=== PATIENT | female | born 1995 | race Caucasian/White ===

== ENCOUNTER 2024-09-23 08:56 | Day surgery (SDC) | payer OTHER, SELFPAY ==
[2024-09-23 08:55] VITALS: BP 135/63; PULSE 73; RESP 18; TEMP 35.8; O2SAT 96
--- NOTE | 2024-09-23 09:05 | W.ED.GENAD ---
Discharge Plan Disposition Patient Disposition: Admit to [facility] Condition: Stable Condition: Stable Discharge Details Chief Complaint: Orthopedic Clinical Impression: Distal radius fracture, left Attending Provider: Garcia Carolina Primary Care Provider: Unknown,Unknown ED Provider: Jason Sommers Discharge Orders Discharge Orders: Discharge Order (Routine); Ordered 09/23/24 Ordered By: Garcia Carolina [facility] General Date/Time Provider Initiated Documentation: 09/23/24 09:02. Limitations to Documentation: no limitations. Information obtained by: patient. HPI Narrative: 29-year-old female with out medical history presents for evaluation of acute onset left arm pain. The patient reports that she was walking on the sidewalk when she slipped and fell and put her arm back to brace her fall. She reports having immediate onset of pain in the left wrist and this was associated with a visual abnormality noted in the wrist. She reports severe pain. No open wounds or bleeding. Denies any other injuries during the fall. Reports that she does not have any numbness or tingling. She is right-hand dominant. N.p.o. 730 with donuts and coffee. Related Data Home Medications ?Medication ?Instructions ?Recorded ?Confirmed citalopram 10 mg tablet (Celexa) 10 mg PO DAILY 09/23/24 09/23/24 naproxen 250 mg tablet 250 - 500 mg (1 - 2 x 250 mg) PO 09/23/24 BID PRN #40 tabs oxycodone 5 mg tablet 5 - 10 mg (1 - 2 x 5 mg) PO Q4H 09/23/24 PRN moderate to severe pain #18 tabs Previous Rx's ?Medication ?Instructions ?Recorded naproxen 250 mg tablet 250 - 500 mg (1 - 2 x 250 mg) PO 09/23/24 BID PRN #40 tabs oxycodone 5 mg tablet 5 - 10 mg (1 - 2 x 5 mg) PO Q4H 09/23/24 PRN moderate to severe pain #18 tabs Allergies Allergy/AdvReac Type Severity Reaction Status Date / Time No Known Allergies Allergy Unverified 09/23/24 09:03 General Stated Complaint: Orthopedic SHRUTHI: 3 Exam Narrative Exam Narrative: Review of Systems: All systems reviewed & are unremarkable except as noted in HPI and below Well-developed, appears uncomfortable NCAT RRR Unlabored respiratory effort \Obvious deformity of left forearm, 2+ radial pulse, good cap refill, sensation intact distally no open wound, elbow nontender without effusion. Course Vital Signs Vital signs: Vital Signs Temperature 35.8 C L 09/23/24 08:55 Pulse 73 09/23/24 08:55 Respiratory Rate 18 09/23/24 08:55 Blood Pressure 135/63 09/23/24 08:55 Pulse Oximetry 96 09/23/24 08:55 Temperature 35.8 C L 09/23/24 08:55 Pulse 73 09/23/24 08:55 Respiratory Rate 18 09/23/24 08:55 Blood Pressure 135/63 09/23/24 08:55 Blood Pressure Position Sitting 09/23/24 08:55 Pulse Oximetry 96 09/23/24 08:55 Oxygen Delivery Method Room Air 09/23/24 08:55 Oxygen Flow Rate 0 09/23/24 08:55 Pain Level 8 09/23/24 08:55 Medical Decision Making Emergent evaluation of acute left arm pain. Patient has obvious deformity noted. Initial differential includes fracture, contusion, ligamentous injury. Doubt neurovascular compromise given the examination. Will provide pain control IV and to get emergent x-ray imaging to further evaluate treatment plan. X-ray imaging is concerning for severe distal radius fracture. Orthopedic surgery has been consulted and have reviewed the imaging. They will take the patient to the operating room for close reduction and further management. Quality:SDOH Health Related Social Needs: Health related social needs housing instability, housed, with risk of homelessness (Z59.811) PFSH All Active Problems (Updated 09/23/24 @ 14:29 by Jason Sommers MD) Distal radius fracture, left (Acute ~09/23/24) Social History Smoking/Tobacco Use Status: Never Smoking risk assessment performed?: Yes Alcohol Intake: never Substance use type: does not use Housing: house Do you feel safe at home: Yes Do you feel safe in your relationship?: Yes Additional Social history: signifigant other at bedside
[2024-09-23] MEDS: fentaNYL 100 MCG/2 ML VIAL 50 MCG IVP ×3 (09:26→11:45)
--- NOTE | 2024-09-23 11:00 | DI.RAD_ITS ---
Exam(s) XR ELBOW LT COMPLETE XR FOREARM LT XR WRIST LT COMPLETE EXAM: XR FOREARM LT CLINICAL HISTORY: DEFORM. TECHNIQUE: 2D digital imaging was performed. Two views of the forearm. Three views of the wrist an d elbow COMPARISON: CR XR ELBOW LT COMPLETE from 09/23/2024 CR XR WRIST LT COMPLETE from 09/23/2024 FINDINGS: BONES: There is a comminuted fracture of the distal radius with posterior displacement and angulation . An ulnar styloid fractures also present. The carpal bones appear intact. No bony destructive les ion is seen. The elbow appears intact. SOFT TISSUE: Normal. IMPRESSION: Comminuted distal radial fracture. Ulnar styloid fracture. DATA REPOSITORY: RADIATION DOSE DELIVERED:
--- NOTE | 2024-09-23 11:33 | W.ANESPRE ---
General Info Date of Service Date Performed: 09/23/24 Height: 5 ft 7 in Weight: 99.79 kg Body Mass Index (BMI): 34.4 Surgical Procedure: Operation Date: 09/23/24 12:10 Proposed Procedure Side Surgeon p Closed Reduction of Wrist Left Garcia Carolina MD Meds Allergies and Home Medications Allergies Allergy/AdvReac Type Severity Reaction Status Date / Time No Known Allergies Allergy Unverified 09/23/24 09:03 Home Medication ?Medication ?Instructions ?Recorded citalopram 10 mg tablet (Celexa) 10 mg PO DAILY 09/23/24 Current Visit Medications: Current Medications Generic Name Dose Route Start Last Admin Trade Name Freq PRN Reason Stop Dose Admin IV Miscellaneous Supplies 1 each 09/23/24 09:15 Iv Access-Emergency Dept IV DIRECTED MADELINE Sodium Chloride 0 ml 09/23/24 09:02 Normal Saline Flush 10 Ml Syr IVP PRN PRN Sodium Chloride 0 ml 09/23/24 20:00 Normal Saline Flush 10 Ml Syr IVP BID MADELINE Sodium Chloride 0 ml 09/23/24 09:02 Normal Saline 10 Ml Vial IJ DIRECTED PRN PFSH Tobacco Smoking/Tobacco Use Status: Never Alcohol Alcohol Intake: never Substance Use Substance use type: does not use Vital Signs and Lab Results Vital Signs Most Recent Vital Signs in EMR: Most Recent Vital Signs Temp Pulse Resp BP Pulse Ox 35.8 C L 73 18 135/63 96 09/23/24 08:55 09/23/24 08:55 09/23/24 08:55 09/23/24 08:55 09/23/24 08:55 Point of Care Results Point of Care Results: POC- Test(urine) Negative 09/23/24 10:21 Lab Results Blood Type / Crossmatch: No Data to Display Complete Blood Count: No Data to Display Complete Metabolic Panel: No Data to Display Liver Function Panel: No Data to Display Coagulation Panel: No Data to Display Cardiac Panel: No Data to Display Arterial Blood Gas: No Data to Display Venous Blood Gas: No Data to Display Pancreas Panel: No Data to Display Thyroid Panel: No Data to Display Infectious Disease: No Data to Display Blood Cultures: No Data to Display Toxicology Panel: No Data to Display Panel: No Data to Display Anesthesia Assessment and Plan Anesthesia History Personal History: No History of Anesthesia Complications Family History: No Family History of Anesthesia Complications Exercise Tolerance Exercise Tolerance: Metabolic Equivalents>4 Cardiac & Pulmonary Exam Cardiac Exam: Normal S1/S2 Heart Sounds Pulmonary Exam: Clear Bilateral Breath Sounds Implantable Cardiac Device Does patient have a Pacemaker or an ICD?: No Airway Exam Known Difficult Airway: No Mallampati Class: 1 Mouth Opening: Normal (> 3cm) Thyromental Distance: Greater than 3 cm Neck Range of Motion: Full ROM Neck Circumference: Normal Teeth Condition: Normal Dentition ASA Classification ASA Score: ASA 2 Emergency Case?: No NPO Status NPO Status: NPO Small Non-Fatty Meal >6 hours (small bites of doughnut. ) Status Status: Negative HCG Anesthesia Plan Resuscitation Status: Full Code Anesthesia Technique: MAC Anesthesia Airway Planned: Natural Airway Pain Management: Surgeon and patient request nerve block Monitors Used: Standard Monitors Preoperative Comments:: 29 yo female for closed reduction. Sig PMHx: Denies major. Diet related GERD. A few small pieces of doughnut holes at ~7 this AM. Discussed risks benefits of GA vs regional anesthesia. Will try to do regional as primary with moderate sedation/GA as back up.
[2024-09-23 11:35] VITALS: BMI 34.4
--- NOTE | 2024-09-23 11:42 | W.ORTHOCONSU ---
Date of service: 09/23/24 Time of Service: 11:43 Assessment and Plan Assessment and plan (1) Distal radius fracture, left: Status: Acute Assessment and plan: 29-year-old [id number] female presented to the ER status post mechanical slip and fall around 815 this morning injuring her left wrist. Describes severe pain and obvious deformity at rest, movement makes it worse. Initially felt like her hand was asleep but this sensation has resolved. Has been given 2 doses of fentanyl. Denies prior wrist issues. Denies any current numbness or weakness. Denies subsequent injury. She states that she is otherwise healthy, past medical history of anxiety and depression. Is prescribed Celexa but states that she has not taken it in about 1 month. X-rays obtained, reveals a distal radius commuted fracture. ER requested orthopedic consultation. Last ate coffee and donuts at about 730 this morning. Left wrist exam: Skin is intact without ecchymosis. Diffuse swelling, tenderness, and obvious deformity. Given known fracture, wrist movement not tested. Patient able to demonstrate limited painful flexion and extension of all digits. Able to demonstrate limited painful elbow motion. No distinct discomfort to direct palpation about the elbow. Sensation intact throughout. Normal radial pulse and capillary refill. Brisk cap refill, warm and perfused. Left wrist x-ray reviewed, comminuted distal radius fracture with notable dorsal displacement and angulation. Ulnar styloid fracture also present. No other hand, forearm, or elbow fracture seen. Discussed at length with patient and her partner. Reviewed the relative urgency for reduction. Possibly extra-articular and may only require close reduction. Reviewed possible incomplete reduction and redisplacement given the amount of initial displacement requiring future ORIF surgery. No major nerve tendon or artery problems at this time. Decision to proceed with left wrist closed reduction under regional and/or general anesthesia The risks, benefits, and alternatives were thoroughly discussed. Patient was counseled regarding pain management, expected postoperative course, and recovery timeline. All questions were answered. Informed consent was obtained. Agree and understand treatment plan. Follow-up to be determined based on reduction/stability Breathing comfortably on room air. No cough or wheeze. Contralateral right wrist 2+ radial pulse regular rate and rhythm. PFSH All Active Problems (Updated 09/23/24 @ 11:45 by RAQUEL Fraga) Distal radius fracture, left (Acute ~09/23/24) Social History Smoking/Tobacco Use Status: Never Smoking risk assessment performed?: Yes Alcohol Intake: never Substance use type: does not use Housing: house Do you feel safe at home: Yes Do you feel safe in your relationship?: Yes Additional Social history: signifigant other at bedside Results Last Vital Signs Temp 35.8 C L 09/23/24 08:55 Pulse 73 09/23/24 08:55 Resp 18 09/23/24 08:55 BP 135/63 09/23/24 08:55 Pulse Ox 96 09/23/24 08:55
[2024-09-23] MEDS: Ketorolac 15 MG/ML VIAL 10 MG IVP (11:44)
[2024-09-23] MEDS: ACETAMINOPHEN 1,000 MG/100 ML BAG 400 MG IVPB (11:44)
[2024-09-23 12:11] VITALS: BP 125/70; PULSE 71; RESP 19; O2SAT 99
--- NOTE | 2024-09-23 12:25 | ROE_ITS ---
Operative Note Operative Note PRE-OP DIAGNOSIS: Displaced left distal radius fracture POST-OP DIAGNOSIS: same PROCEDURE: Left wrist closed reduction with manipulation under anesthesia, CPT #21890 SURGEON: Garcia Carolina ANESTHESIA TYPE: General LMA/ETT and Primary Nerve Block Refer to Anesthesia Record COMPLICATIONS: None Patient was transported to: PACU Patient's condition: stable Indications: Please see complete medical record for details. Procedure Description: In the operating room, general anesthesia was induced. The patient was positioned supine on the stretcher. Preoperative antibiotics were omitted. The correct patient, procedure, and side of the procedure were all verified prior to incision. The obvious distal radius/wrist deformity was examined. Skin was intact. Compartments were soft. Using the single boarding kennel or cattery operator maneuver, traction was applied followed by gentle exaggeration of the deformity and then a careful volar translation, flexion, and ulnar deviation force was used to correct the deformity. The extremity was visibly and palpably aligned appropriately. C arm fluoroscopy was used to confirm excellent reduction. An appropriately molded and padded plaster sugar-tong splint was then applied with a careful 3 point mold used to maintain the reduction. Final imaging confirmed maintenance of the reduction in the hardened splint. The patient awoke from anesthesia without complication and was transferred to the recovery area in a stable condition. She readily demonstrated nearly full motion all fingers and thumb. Brisk capillary refill. Date of Procedure: 09/23/24
--- NOTE | 2024-09-23 12:25 | W.PM.DSUDISC ---
Date of service: 09/23/24 Discharge Plan Disposition Patient Disposition: Home Condition: Stable Discharge Details Reason For Visit: Broken Wrist Attending Provider: Garcia Carolina Primary Care Provider: Unknown,Unknown Home Meds and New Rx's Prescriptions: New naproxen 250 mg tablet 250 - 500 mg PO BID PRNQty: 40 0RF Rx Instructions: take with a meal oxycodone 5 mg tablet 5 - 10 mg PO Q4H MDD 30 mg PRN (Reason: moderate to severe pain) Qty: 18 0RF Continued citalopram [Celexa] 10 mg tablet 10 mg PO DAILY Discharge Instructions Additional Instructions: Surgery: Left wrist closed reduction with manipulation under anesthesia 09/23/24 Activity: Nonweightbearing left wrist. Elevation to minimize swelling and discomfort. Encourage range of motion all fingers and thumb to prevent stiffness. Light/gentle use hand okay (e.g. writing, typing). A hand therapy prescription will be provided separately in the office at follow-up if needed. Prescriptions: Naproxen 250 mg take 1-2 every 12 hours with a meal as needed for moderate pain Oxycodone 5 mg take 1-2 every 4-6 hours as needed for severe pain You may use [id number] Tylenol (acetaminophen) as needed for mild pain. These pain medications may be taken all at once or in different combinations as needed. Also, recommend Colace (docusate) as a stool softener as surgery and pain medicine cause constipation. You may try qvpv-syr-rxvobdf diphenhydramine (Benadryl) 25-50 mg nightly as a sleep aid Dressings: Leave splint and dressing in place until follow-up. Keep clean and dry at all times. Follow-up: 10-[address] Carolina You may take off the leg compression stockings this evening at home. You may also leave them on a few days longer if you have a history of leg swelling or edema. Let us know right away if you develop any redness, drainage, fevers, chest pain, or trouble breathing. Do not drink alcohol or drive for at least 24 hours after anesthesia. Please call the office during business hours with any questions or concerns. DS: Diagnosis Discharge Diagnosis (1) Distal radius fracture, left: Status: Acute
[2024-09-23 12:37] VITALS: BP 138/68
[2024-09-23] MEDS: Lactated Ringers 1,000 ML 30 ML IV (12:51)
--- NOTE | 2024-09-23 13:18 | W.ANESNERVE ---
Nerve Block Single Injection Procedure Date and Time Date Performed: 09/23/24 Procedure Start: 12:28 Location Where Procedure Performed Procedure Location: PACU Reason Performed: Postoperative Analgesia Requesting Provider: Garcia Carolina Timeout Performed Timeout Performed: Yes Monitoring Used ECG, Blood Pressure and SpO2 Sterility Sterility: Hand Hygiene, Surgical Cap, Surgical Mask, Sterile Gloves and Chlorhexidine Sedation Given During Procedure Sedation Given (Indicate Dose Given): Propofol IV Dose:: 50 mg and Other: (Lidocaine) Medication/Route/Dose:: 80 mg Patient Mental Status Patient Mental Status: Sedate with meaningful communication Nerve Block 1st Nerve Block: Laterality: Left Block Type: Supraclavicular Ultrasound Image Saved?: Yes Needle / Catheter Used: 100mm SonoPlex II Local Anesthetic Bolus (Indicate Dose Given): Lidocaine used for local infiltration of skin and Bupivacaine 0.5% Dose:: 20 mL Additives (Indicate Dose Given): None Ultrasound: Sterile probe cover and gel used Nerve Stimulator: Supplement to Ultrasound use and No twitch or parasthesia noted < 0.5 mA Paresthesia: None Procedure Tolerated: No Complications Procedure Outcome: Successful Performed By: Fito Connelly
[2024-09-23 13:19] VITALS: BP 117/63; PULSE 71; RESP 16; TEMP 36.7; O2SAT 95
--- NOTE | 2024-09-23 13:19 | DI.RAD_ITS ---
Exam(s) XR WRIST LT LIMITED EXAM: XR WRIST LT LIMITED CLINICAL HISTORY: Distal radius fracture, left. TECHNIQUE: 2D and realtime digital imaging was performed. COMPARISON: CR XR WRIST LT COMPLETE from 09/23/2024 FINDINGS: Hard copy images show correction of the previously noted posterior displacement and angulation of th e distal radial fracture. A cast has been placed. Please see procedure note for details. Fluoro time: 10.5Seconds RADIATION DOSE DELIVERED: radha Bee=0.16 mGy
--- NOTE | 2024-09-23 13:23 | W.ANESPOSTOP ---
Postoperative Evaluation Date, Time and Location Date Performed: 09/23/24 Time Performed: 13:23 Patient Location: Day Surgery Unit Vital Signs Most Recent Imported Vital Signs: Most Recent Vital Signs Temp Pulse Resp BP Pulse Ox 36.7 C 71 16 117/63 95 09/23/24 13:19 09/23/24 13:19 09/23/24 13:19 09/23/24 13:19 09/23/24 13:19 Pain Score Most Recent Pain Score: Most Recent Pain Score Pain Level 2 09/23/24 13:19 Assessment Mental Status: Awake (Alert & Oriented to Patient Baseline) Airway and Respiratory Function: Patent airway with normal (patient baseline) respiratory exam Cardiovascular Function: Hemodynamically Stable Hydration Status: Adequately Hydrated Nausea & Vomiting: No Nausea or Vomiting Pain: Pain is tolerable per patient Peripheral Nerve Block: Regional nerve block not resolved at time of post operative discharge
[2024-09-23 13:47] VITALS: BP 121/59; PULSE 68; RESP 16; TEMP 36.7; O2SAT 100
== END 2024-09-23 14:06 | disposition home or self-care (01) ==
LOC: ER 12:21 → SUR 12:23
PROVIDERS: Emergency Provider Emergency Medicine; Visit Provider Student in an Organized Health Care Education/Training Program
PROC: (CPT 25605; principal; 2024-09-23 12:00)
DX: X58.XXXA Exposure to other specified factors, initial encounter; S52.352A Displaced comminuted fracture of shaft of radius, left arm, initial encounter for closed fracture; G89.18 Other acute postprocedural pain
CPT/HCPCS: 25605; 64415; 76000; 73080; 73090; 73100; 73110; J0131; J0665; J1100; J1885; J2003; J2405; J2704; J3010

== ENCOUNTER 2024-10-07 15:58 | Outpatient (CLI) | payer MEDICAID, SELFPAY ==
--- NOTE | 2024-10-07 15:30 | DI.RAD_ITS ---
Exam(s) XR WRIST LT LIMITED EXAM: XR WRIST LT LIMITED CLINICAL HISTORY: F/U FRACTURE. TECHNIQUE: 2D digital imaging was performed. COMPARISON: XA XR WRIST LT LIMITED from 09/23/2024 CR XR WRIST LT COMPLETE from 09/23/2024 FINDINGS: Three in cast views of left wrist. Again noted is the previously reduced (09/23/2024) comminuted fracture of the distal radius and ulnar styloid.. There appears to be slight offset on the lateral view when compared to the immediate post reduction i mages of 09/23/2024. This, however, may be related to slight changes of angulation of the lateral pr ojection. Appears satisfactory on the frontal view. The ulnar styloid is again noted be well reduce d. There is mild negative ulnar variance which is unchanged from 09/23/2024. IMPRESSION: As above. DATA REPOSITORY: RADIATION DOSE DELIVERED:
== END 2024-10-07 15:59 | disposition home or self-care (01) ==
LOC: DIORS 15:59
PROVIDERS: Visit Provider Student in an Organized Health Care Education/Training Program
DX: S52.352D Displaced comminuted fracture of shaft of radius, left arm, subsequent encounter for closed fracture with routine healing (principal); X58.XXXD Exposure to other specified factors, subsequent encounter
CPT/HCPCS: 73100

== ENCOUNTER 2024-10-14 15:40 | Outpatient (CLI) | payer MEDICAID, SELFPAY ==
--- NOTE | 2024-10-14 08:45 | DI.RAD_ITS ---
Exam(s) XR WRIST LT LIMITED EXAM: XR WRIST LT LIMITED CLINICAL HISTORY: F/U FRACTURE. TECHNIQUE: 2D digital imaging was performed. Three views. COMPARISON: No exams were available for comparison FINDINGS: BONES: The cast has been replaced. There has been no gross interval change in the alignment of the d istal radial fracture. The ulnar styloid fractures minimally displaced. JOINTS: The carpal bones are normally aligned. SOFT TISSUE: Normal obscured by cast material. IMPRESSION: stable alignment of distal radial and ulnar styloid fractures. DATA REPOSITORY: RADIATION DOSE DELIVERED:
== END 2024-10-14 15:41 | disposition home or self-care (01) ==
LOC: DIORS 15:40
PROVIDERS: Visit Provider Student in an Organized Health Care Education/Training Program
DX: S52.352D Displaced comminuted fracture of shaft of radius, left arm, subsequent encounter for closed fracture with routine healing (principal); X58.XXXD Exposure to other specified factors, subsequent encounter
CPT/HCPCS: 73100

== ENCOUNTER 2024-10-28 14:45 | Outpatient (CLI) | payer MEDICAID, SELFPAY ==
--- NOTE | 2024-10-28 13:30 | DI.RAD_ITS ---
Exam(s) XR WRIST LT LIMITED EXAM: XR WRIST LT LIMITED CLINICAL HISTORY: F/U FRACTURE. TECHNIQUE: 2D digital imaging was performed. COMPARISON: CR XR WRIST LT COMPLETE from 09/23/2024 CR XR WRIST LT LIMITED from 10/14/2024 FINDINGS: Two views-AP and lateral Cast has been removed. Again noted is the previously described comminuted impacted fracture of the distal radius with fractu re line still evident but less dorsal angulation when compared to the regional images of 09/23/2024. The ulnar styloid fracture is exhibiting some healing. Scaphoid and scapholunate distance normal. N o significant ulnar variance. IMPRESSION: As above. DATA REPOSITORY: RADIATION DOSE DELIVERED:
== END 2024-10-28 14:46 | disposition home or self-care (01) ==
LOC: DIORS 14:46
PROVIDERS: Visit Provider Student in an Organized Health Care Education/Training Program
DX: S52.352D Displaced comminuted fracture of shaft of radius, left arm, subsequent encounter for closed fracture with routine healing (principal); X58.XXXD Exposure to other specified factors, subsequent encounter
CPT/HCPCS: 73100

== ENCOUNTER 2024-12-02 14:18 | Outpatient (CLI) | payer MEDICAID, SELFPAY ==
--- NOTE | 2024-12-02 13:15 | DI.RAD_ITS ---
Exam(s) XR WRIST LT LIMITED EXAM: XR WRIST LT LIMITED CLINICAL HISTORY: F/U FRACTURE. TECHNIQUE: 2D digital imaging was performed. COMPARISON: CR XR WRIST LT LIMITED from 10/28/2024 FINDINGS: Two views Again noted is a previously described impacted fracture of the distal radius and base of the ulnar st yloid. The distal radius fracture site exhibits some healing and no further displacement and there i s no significant ulnar variance nor widening of the scapholunate distance. No obvious scaphoid fract ure. However, the fracture at the base of the ulnar styloid appears widened when compared to the rei ges of 10/28/2024. IMPRESSION: Stable appearance of the distal radius fracture site but there is widening at the fracture line at th e base of the ulnar styloid. There is no significant ulnar variance. DATA REPOSITORY: RADIATION DOSE DELIVERED:
== END 2024-12-02 14:19 | disposition home or self-care (01) ==
LOC: DIORS 14:19
PROVIDERS: Visit Provider Student in an Organized Health Care Education/Training Program
DX: S52.352D Displaced comminuted fracture of shaft of radius, left arm, subsequent encounter for closed fracture with routine healing (principal); X58.XXXD Exposure to other specified factors, subsequent encounter
CPT/HCPCS: 73100

== ENCOUNTER 2025-02-03 13:34 | Outpatient (CLI) | payer MEDICAID, SELFPAY ==
--- NOTE | 2025-02-03 12:45 | DI.RAD_ITS ---
Exam(s) XR WRIST LT LIMITED EXAM: XR WRIST LT LIMITED CLINICAL HISTORY: F/U FRACTURE. TECHNIQUE: 2D digital imaging was performed. COMPARISON: CR XR WRIST LT LIMITED from 12/02/2024 FINDINGS: 3 views There has been further healing at the distal radius fracture site; the fracture line is no longer visible. No significant dorsal angulation. The fracture of the base of the ulnar styloid is still visible without evidence of the union across the fracture at this level. Scaphoid and scapholunate distance are normal. IMPRESSION: Healed distal radial fracture site. Non healed fracture of the base of the ulnar styloid. There is no significant ulnar variance. DATA REPOSITORY: RADIATION DOSE DELIVERED:
== END 2025-02-03 13:35 | disposition home or self-care (01) ==
LOC: DIORS 13:34
PROVIDERS: Visit Provider Student in an Organized Health Care Education/Training Program
DX: S52.502A Unspecified fracture of the lower end of left radius, initial encounter for closed fracture (principal)
CPT/HCPCS: 73100